=== PATIENT | male | born 1965 | race Caucasian/White ===

== ENCOUNTER 2018-08-01 10:22 | Emergency (ER) | payer MEDICAID ==
[~2018-08-01] VITALS: Ht 167.6 cm; Wt 68.9 kg
[2018-08-01 10:34] VITALS: BP 126/72; PULSE 74; RESP 20; Ht 167.6 cm; Wt 68.9 kg
[2018-08-01] MEDS ORDERED: ONDANSETRON (ODT) 4 MG TAB ODT STA (11:17)
[2018-08-01] MEDS ORDERED: NAPR-985 PO (11:19)
[2018-08-01] MEDS ORDERED: CYCL10TA7 PO (11:19)
[2018-08-01] MEDS ORDERED: HYDR-4011 PO (11:19)
[2018-08-01] MEDS ORDERED: HYDROCODONE/APAP (5/325) TAB PO ONE (11:30)
--- NOTE | 2018-08-01 15:27 | ERD ---
ER Documentation Chief Complaint Chief Complaint C/O LEFT SIDE NECK AND ARM PAIN SINCE MODAY, WORSEN WITH MOVEMENT HPI 52-year-old male presenting with pain to neck and arm. Denies any fevers. Denies any traumatic injuries. Took Tylenol yesterday with no alleviation. Patient pain is worse with movement. Denies chest pain or shortness of breath. No fevers. Denies medical problems. NKDA. Surgical history is hypertension. Social history denies ROS All systems reviewed and are negative except as per history of present illness. Medications Home Meds Active Scripts Cyclobenzaprine Hcl* (Cyclobenzaprine Hcl*) 10 Mg Tablet, 10 MG PO TID, #15 TAB Prov:GERALD ALBA PA-C 08/01/18 Naproxen* (Naprosyn*) 500 Mg Tablet, 500 MG PO BID PRN for PAIN AND/OR INFLAMMATION, #30 TAB Prov:GERALD ALBA PA-C 08/01/18 Hydrocodone/Acetaminophen ([place] 5-325 Tablet) 1 Each Tablet, 1 TAB PO Q6H PRN for PAIN, #7 TAB Prov:GERALD ALBA PA-C 08/01/18 Allergies Allergies: Coded Allergies: No Known Allergy (Unverified , 08/01/18) PMhx/Soc Medical and Surgical Hx: pt denies Medical Hx History of Surgery: Yes (left eye sx) Anesthesia Reaction: No Hx Alcohol Use: No Hx Substance Use: No Hx Tobacco Use: No Smoking Status: Never smoker FmHx Family History: No diabetes, No coronary disease, No other Physical Exam Vitals Vital Signs Date Temp Pulse Resp B/P (MAP) Pulse Ox O2 O2 Flow FiO2 Time Delivery Rate 08/01/18 98.0 74 20 126/72 98 10:34 (90) Physical Exam GENERAL: The patient is well-appearing, well-nourished, in no acute distress HEENT: Atraumatic. Conjunctivae are pink. Pupils equal, round, and reactive to light. There is no scleral icterus. Tympanic membranes clear bilaterally. Oropharynx clear. NECK: C-spine is soft and supple. There is no meningismus. There is no cervical lymphadenopathy. To palpation over paraspinous muscles of the neck CHEST: Clear to auscultation bilaterally. There are no rales, wheezes or rho nchi. HEART: Regular rate and rhythm. No murmurs, clicks, rubs or gallops. EXTREMITIES: Equal pulses bilaterally. There is no peripheral clubbing, cyanosis or edema. No focal swelling or erythema. Full range of motion. Grossly neurovascularly intact. NEUROLOGIC: Alert and oriented. Cranial nerves II through XII intact. Motor strength in all 4 extremities with 5 out of 5 strength. Sensation grossly intact. Normal speech and gait. Babinski negative. SKIN: There is no apparent rash or petechiae. The skin is warm and dry. Results 24 hrs Current Medications Medications Dose Sig/Marlena Start Time Status Last (Trade) Ordered Route PRN Stop Time Admin Dose Reason Admin 1 tab ONCE ONCE 08/01/18 DC 08/01/18 Acetaminophen PO 11:30 11:24 / 08/01/18 11:31 Hydrocodone Bitart ([place] (5/325)) Ondansetron 4 mg ONCE STAT 08/01/18 DC 08/01/18 HCl (Zofran ODT 11:17 11:24 Odt) 08/01/18 11:19 Procedures/MDM MDM: 52-year-old male presenting with pain. I have low suspicion acute fracture dislocation. I have low suspicion for meningitis or sepsis. Patient has pain along muscular skeletal regions and I feel that patient has muscle spasm secondary to his job. I do not feel that imaging is indicated. Patient is discharged with strict ER precautions and told to follow-up with primary care. Patient's has normal range of motion of his extremities. All questions answered at discharge. I have low suspicion for neuro deficit. Departure Diagnosis: Primary Impression: Muscle spasm Condition: Stable Patient Instructions: Muscle Spasm Referrals: [facility] YOU HAVE RECEIVED A MEDICAL SCREENING EXAM AND THE RESULTS INDICATE THAT YOU DO NOT HAVE A CONDITION THAT REQUIRES URGENT TREATMENT IN THE EMERGENCY DEPARTMENT. FURTHER EVALUATION AND TREATMENT OF YOUR CONDITION CAN WAIT UNTIL YOU ARE SEEN IN YOUR DOCTORS OFFICE WITHIN THE NEXT 1-2 DAYS. IT IS YOUR RESPONSIBILITY TO MAKE AN APPOINTMENT FOR FOLOW-UP CARE. IF YOU HAVE A PRIMARY DOCTOR --you should call your primary doctor and schedule an appointment IF YOU DO NOT HAVE A PRIMARY DOCTOR YOU CAN CALL OUR PHYSICIAN REFERRAL HOTLINE AT IF YOU CAN NOT AFFORD TO SEE A PHYSICIAN YOU CAN CHOSE FROM THE FOLLOWING [facility] [address] [facility] [address] [facility] [address] [facility] [address] [facility] [address] [facility]. [facility] [address] Additional Instructions: FOLLOW UP WITH YOUR PRIMARY CARE PHYSICIAN TOMORROW.Return to this facility if you are not improving as expected. GERALD ALBA PA-C August 01, 2018 15:27
== END 2018-08-01 11:44 | disposition home or self-care (01) ==
LOC: FTE 10:22
DX: M62.838 Other muscle spasm (principal); I10 Essential (primary) hypertension
CPT/HCPCS: Z7502; Z7610; 99283